=== PATIENT | female | born 1975 | race African-American/Black ===

== ENCOUNTER 2022-06-15 19:29 | Emergency (ER) | payer OTHER ==
[2022-06-15 19:36] VITALS: BP 105/63; PULSE 67; RESP 16; TEMP 97.7; BMI 44.6
[2022-06-15] MEDS ORDERED: IBUPROFEN 600 MG TABLET (FP) PO ONE ×2 (20:50→20:53)
[2022-06-15] MEDS ORDERED: CEPHALEXIN MONOHYDRATE 500 MG CAPSULE (UD) PO ONE (20:50)
[2022-06-15] MEDS ORDERED: ACETAMINOPHEN 500 MG TABLET (FP) PO ONE (20:50)
[2022-06-15] MEDS ORDERED: CEPHALEXIN MONOHYDRATE 500 MG CAPSULE (UD) ONE (20:53)
[2022-06-15] MEDS ORDERED: ACETAMINOPHEN 500 MG TABLET (FP) ONE (20:53)
== END 2022-06-15 21:53 | disposition home or self-care (01) ==
LOC: JERFT 19:29
DX: M79.674 Pain in right toe(s) (principal)
CPT/HCPCS: 99283-25

== ENCOUNTER 2022-07-03 14:38 | Emergency (ER) | payer OTHER ==
[2022-07-03 14:47] VITALS: BP 114/63; PULSE 67; RESP 18; TEMP 97.5; BMI 44.6
== END 2022-07-03 15:24 | disposition home or self-care (01) ==
LOC: JERFT 14:38
DX: M79.674 Pain in right toe(s) (principal)
CPT/HCPCS: 73630-TC-RT-FY; 99283-25